=== PATIENT | male | born 1940 | race Caucasian/White ===

== ENCOUNTER 2017-03-10 11:04 | Outpatient (CLI) | payer MEDICARE, OTHER ==
[~2017-03-10] VITALS: Ht 177.8 cm; Wt 78.5 kg
[2017-03-10] VITALS (10 sets, daily range): BP systolic 127–172; BP diastolic 68–89
[~2017-03-10 11:04] MED LIST: ASCO500T3 PO; BISO1TAB10 PO; FENO160T PO; LISI10TA2 PO; OMEG100020 PO
[2017-03-10 11:46] LABS: HEMATOCRIT 48.7 % (39.0-53.0); HEMOGLOBIN 16.1 g/dL (13.0-17.5); RED BLOOD COUNT 5.5 x10^6/uL (4.30-5.70); RED CELL DISTRIBUTION WIDTH 14.5 % (11.5-14.5); WHITE BLOOD COUNT 9.7 x10^3/uL (4.0-11.0)
[2017-03-10 11:52] LABS: CALCIUM 9.1 mg/dL (8.5-10.1); CREATININE 0.9 mg/dL (0.7-1.3); GFR 82.5; POTASSIUM 3.7 mmol/L (3.5-5.1)
[2017-03-10] MEDS ORDERED: ASPI-482 PO (11:56)
[2017-03-10 11:58] LABS: PROTHROMBIN TIME PATIENT 12.1 SEC (11.7-14.0)
[2017-03-10] MEDS ORDERED: IOHEXOL 300 MG/ML 100ML VIAL. ONE (12:26)
[2017-03-10] MEDS ORDERED: LIDOCAINE 2% 20 ML VIAL. ONE (12:26)
[2017-03-10] MEDS ORDERED: MIDAZOLAM HCL/PF 2 MG/2 ML VIAL. ONE (12:50)
[2017-03-10] MEDS ORDERED: FENTANYL PF 100 MCG/2 ML VIAL. ONE (12:50)
--- NOTE | 2017-03-10 12:50 | PDOC ---
MODERATE SEDATION ASSESSMENT RISKS/ALTERNATIVES Risks/Alternatives Risks and alternatives of this type of sedation and procedure discussed with: RISK/ALTERNATIVES: Patient H & P ON CHART H & P H & P on chart and reviewed for co-morbid conditions and appropriate labs. H&P ON CHART: Yes STATUS PREG STATUS ASSESSED: Yes MEDS/ALLERGIES REVIEWED Meds/Allergies Reviewed Medications and Allergies including time and route of recently administered narcotics and sedatives. MEDS/ALLERGIES REVIEWED: Yes ASA RATING ASA RATING: I AIRWAY ASSESSMENT Airway Assessment Airway patency, oral function limitations, presence of caps, crowns, dentures, partials, and ability to extend neck assessed. AIRWAY ASSESSMENT: Yes MALLAMPATI SCORE MALLAMPATI SCORE: I PRE-SEDATION ASSESSMENT PRE-SEDATION ASSESSMENT: Yes DANIEL ROSARIO MD Mar 10, 2017 12:50
[2017-03-10] MEDS ORDERED: FENTANYL PF 100 MCG/2 ML VIAL. IV ONE (13:00)
[2017-03-10] MEDS ORDERED: MIDAZOLAM HCL/PF 2 MG/2 ML VIAL. IV ONE (13:00)
[2017-03-10] MEDS ORDERED: LIDOCAINE 2% 20 ML VIAL. IJ ONE (13:00)
[2017-03-10] MEDS ORDERED: IOHEXOL 300 MG/ML 100ML VIAL. IART ONE (13:00)
[2017-03-10] MEDS ORDERED: CONTRAST GIVEN MC PRN (13:15)
--- NOTE | 2017-03-10 15:19 | CARD ---
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 INDICATION The indication(s) include : stable angina , chest pain, Pt having exertional chest pains releived by rest., No chest pain at rest. CASE TECHNIQUE The patient was brought electively into the cardiac catheterization lab. A timeout was performed conf irming the patient's name, date of , procedure, and site of procedure. All necessary parties wer e wearing the appropriate personal protective equipment and radiation monitoring devices. After expla ining the risks and benefits of the procedure, informed consent was obtained.(See nursing notes for m edications administered). The right groin was sterilely prepped and draped. The right femoral groin w as infiltrated with 2% Lidocaine subcutaneous anesthesia. During this case, Fluoroscopy and low osmol ar contrast were used for imaging. A sheath was inserted into the right femoral artery without diffic ulty. Coronary angiography was performed using coronary diagnostic catheters. The left coronary syste m was accessed and visualized with a Diagnostic catheter. The right coronary system was accessed and visualized with a Diagnostic catheter. The left ventricle was accessed and visualized with a Diagnost ic catheter. Left ventricular/Aortic Valve gradient assessed on pullback. Left ventriculogram was per formed in REHMAN projection. Pre-demployment femoral angiogram was performed . Closure device was deploy ed with a Angioseal without any complications. The patient tolerated the procedure well and there wer e no complications associated with the procedure. Coronary Angiography The patient's coronary anatomy is co-dominant. The left main coronary artery is a large size vessel free of disease. The left main trifurcates to th e left anterior descending, circumflex, and ramus. The left anterior descending artery is a large size vessel with stenosis. There is a 95% stenosis in the proximal segment. The first diagonal branch is a medium size vessel . There is a 80% stenosis in the proximal segment. The second diagonal branch is a small size vessel with intimal irregularities a nd without significant stenosis. The third diagonal branch is a small size vessel with intimal irregu larities and without significant stenosis. The circumflex artery is a large size vessel with intimal irregularities and without significant sten osis. The first obtuse marginal branch is a large size vessel with stenosis. There is a 80% stenosis in the proximal segment. The second obtuse marginal branch is a medium size vessel with intimal irreg ularities and without significant stenosis. The third obtuse marginal branch is a medium size vessel with intimal irregularities and without significant stenosis. The ramus intermedius artery is a medium size vessel with diffuse calcification noted throughout this vessel and with significant stenosis. There is a 70% stenosis in the proximal segment. The right coronary artery is a large size vessel with stenosis. There is a 85% stenosis in the mid se gment. The right posterior descending artery is a medium size vessel free of disease. The right poste rolateral branch is a small size vessel without stenosis. Left Ventriculography The left ventricle is normal in size with normal contractility. The left ventricular ejection fractio n is estimated to be 70%. The left ventricular end diastolic pressure is 14 mmHg. There was no gradie nt across the aortic valve upon pullback. Conclusion This pt has significant multivessel disease I recommend CABGS. Recommendations CABG
--- NOTE | 2017-03-11 05:12 | CONS ---
DATE OF CONSULTATION: 03/10/2017 REFERRING PHYSICIAN: Dr. Alex Jacob. PRIMARY CARE PHYSICIAN: Dr. Cassie Vidal. REASON FOR CONSULTATION: Multivessel coronary artery disease. HISTORY OF PRESENT ILLNESS: The patient is a very pleasant 76-year-old gentleman who has a known history of coronary artery disease with prior myocardial infarction and stent placement to the LAD approximately 12 years ago. He has done well in the interim, but has begun having symptoms of exertional angina with minimal activity in the last month or two. Due to his symptomology, the patient was reevaluated by Dr. Jacob. Left heart catheterization was performed showing evidence of significant multivessel coronary artery disease with preserved LV systolic function. We have asked to see the patient now to consider coronary bypass grafting. PAST MEDICAL HISTORY: 1. Coronary artery disease. 2. Essential hypertension. 3. History of cataracts. PAST SURGICAL HISTORY: 1. Tonsillectomy. 2. Adenoidectomy. 3. Cataract removal. 4. Stent placement to the LAD in the past. ALLERGIES: There are no known drug allergies. CURRENT MEDICATIONS: Vitamin C 500 mg daily, lisinopril 10 mg daily, fenofibrate 160 mg daily, fish oil 1000 mg daily, aspirin 81 mg daily, bisoprolol/hydrochlorothiazide 2.5-6.25 mg once daily. SOCIAL HISTORY: The patient is a nonsmoker, does not use alcohol. 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 FAMILY HISTORY: The patient's father is , he did have a history of heart disease. Mother is , she had a history of dementia. REVIEW OF SYSTEMS: A 14-point review of systems was performed and as otherwise outlined above in the history of present illness is negative. PHYSICAL EXAMINATION: GENERAL: Reveals an awake, alert, elderly male in no active distress. His pulse is 74 and sinus rhythm. VITAL SIGNS: Blood pressure is 112/70. HEENT: Unremarkable. NECK: Shows no JVD. There are no bruits noted. CARDIOVASCULAR: Regular rhythm and rate without murmur. LUNGS: Clear and equal bilaterally. ABDOMEN: Soft, nontender. EXTREMITIES: Show no edema. Pedal pulses are normal. NEUROLOGIC: Showed no focal abnormalities. SKIN: Shows no lesions present. IMPRESSION: This is a 76-year-old male presents with exertional angina and has multivessel coronary artery disease with preserved LV function. RECOMMENDATIONS: I agree that coronary bypass grafting would be appropriate for the patient. I would anticipate graft being placed to the LAD, one graft to the obtuse marginal vessel. The first diagonal vessel may be graftable, but appears to be relatively small in size. The right coronary artery would benefit from a graft as well. Risks, benefits and alternatives of coronary bypass grafting were discussed with the patient and his family. He appears to understand and desires to proceed. OR plans are to be scheduled for 03/14/2017. He will be admitted at that time. Thank you very much for asking me to partake in the care of this very pleasant gentleman. DESIRAE THAKKAR MD DR: HAMIDA/jordan JOB#: [id number] / [id number] CASSIE Martin MD, HECTOR MD
== END 2017-03-10 16:40 | disposition home or self-care (01) ==
LOC: CCL 11:04
PROVIDERS: ATTEND Internal Medicine Cardiovascular Disease
DX: I20.8 Other forms of angina pectoris (principal); I10 Essential (primary) hypertension; E78.00 Pure hypercholesterolemia, unspecified; I25.10 Atherosclerotic heart disease of native coronary artery without angina pectoris; Z87.891 Personal history of nicotine dependence; Z98.41 Cataract extraction status, right eye; Z98.42 Cataract extraction status, left eye
CPT/HCPCS: 36415; 80048; 85027; 85610; 93458; C1769; C1771; C1892; J2250; J3010; Q9967; G0269

== ENCOUNTER → 2017-03-13 | Outpatient (CLI) | payer MEDICARE, OTHER ==
[2017-03-10 15:00] VITALS: BP 146/76
[~2017-03-13] MED LIST changes: +ASPI-482 PO
--- NOTE | 2017-03-13 11:35 | RAD ---
Indication coronary artery disease. Anticipated bypass. Preprocedure study. Grayscale color Doppler and spectral imaging was performed. Examination was targeted to the carotid bifurcations. On the right there is no significant plaquing or abnormal thickening. The color Doppler images do not suggest significant turbulence. The right common carotid has a normal waveform and velocity. The external carotid has a normal appearance. The internal carotid waveform and velocities are normal. The vertebral is patent and demonstrates normal antegrade flow. On the left there is no significant plaquing. The color Doppler images do not suggest significant turbulence. The common carotid waveform and velocities are normal. The external carotid has a normal appearance. The internal carotid waveform and velocities are also normal. The vertebral is patent and demonstrates normal directional flow. IMPRESSION: No evidence of hemodynamically significant stenosis at either carotid bifurcation. Stenosis 0-50%. Note: Stenosis calculations for CT, MR and conventional angiography are based upon determination of the distal ICA diameter in accordance with the NASCET methodology. Stenosis calculations for doppler studies are derived from validated velocity criteria which are known to correlate with NASCET methodology of determining stenosis.
--- NOTE | 2017-03-13 13:23 | RAD ---
Indication preop. Anticipated open heart surgery. PA and lateral views of the chest were obtained and are compared to an exam 10/18/2006. The heart and pulmonary vessels appear normal. The lungs are clear. There are occasional calcified granulomas similar to the previous exam. IMPRESSION: No acute finding in the chest. No significant change
== END | disposition home or self-care (01) ==
LOC: US 10:06
PROVIDERS: ATTEND Thoracic Surgery (Cardiothoracic Vascular Surgery)
DX: Z01.818 Encounter for other preprocedural examination (principal); I25.10 Atherosclerotic heart disease of native coronary artery without angina pectoris
CPT/HCPCS: 36415; 71020; 87641; 93880

== ENCOUNTER 2017-03-14 05:36 | Inpatient (IN) | payer MEDICARE, OTHER ==
--- NOTE | 2017-03-13 14:07 | EKG ---
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
[~2017-03-14] VITALS: Ht 180.3 cm; Wt 83.9 kg
[2017-03-14] VITALS (18 sets, daily range): BP systolic 82–158; BP diastolic 40–80
[2017-03-14] MEDS ORDERED: POTASSIUM CHLORIDE 15 MEQ, SODIUM BICARBONATE VIAL 12.5 MEQ in IV ELECTROLYTE-S (PH 7.4... IRR ONE (06:00)
[2017-03-14] MEDS ORDERED: POTASSIUM CHLORIDE 70 MEQ, SODIUM BICARBONATE VIAL 12.5 MEQ, LIDOCAINE 2% 24 ML in IV E... IRR ONE (06:00)
[2017-03-14] MEDS ORDERED: INSULIN REGULAR VIAL 150 UNIT in 0.9 % SODIUM CHLORIDE 150ML 150 ML IV PRN (06:00)
[2017-03-14] MEDS ORDERED: CEFAZOLIN PREMIX 2 GM/50 ML BAG. IV ONE (06:00)
[2017-03-14] MEDS ORDERED: HEPARIN 20,000 UNIT in IV RINGERS,LACTATED 1000ML 1,000 ML IRR ONE (06:00)
[2017-03-14] MEDS ORDERED: METOPROLOL TART IMMED RELEASE 25 MG TABLET. PO ONE (06:00)
[2017-03-14] MEDS ORDERED: ETOMIDATE 20 MG/10 ML VIAL. IV ONE (06:27)
[2017-03-14] MEDS ORDERED: HEPARIN for IV BOLUS 10,000 UNIT/10 ML VIAL. ONE ×3 (06:27→10:31)
[2017-03-14] MEDS ORDERED: AMINOCAPROIC ACID 5,000 MG/20 ML VIAL. IV ONE ×2 (06:27→12:46)
[2017-03-14] MEDS ORDERED: ROCURONIUM 100 MG/10 ML VIAL. ONE ×3 (06:31→09:40)
[2017-03-14] MEDS ORDERED: PHENYLEPHRINE 10 MG/ML VIAL. ONE (06:32)
[2017-03-14] MEDS ORDERED: MIDAZOLAM HCL/PF 5 MG/5 ML VIAL. ONE (06:48)
[2017-03-14] MEDS ORDERED: SUFentanil 100 MCG/2 ML AMPUL. ONE ×2 (06:48→09:08)
[2017-03-14] MEDS ORDERED: NITROGLYCERIN PREMIX 250 ML IV ONE ×2 (06:51→11:41)
[2017-03-14] MEDS ORDERED: LIDOCAINE 1% 1 ML SYRINGE. ID PRN (07:00)
[2017-03-14] MEDS ORDERED: ONDANSETRON PF 4 MG/2 ML VIAL. IV PRN ×2 (07:00→15:30)
[2017-03-14] MEDS ORDERED: IV RINGERS,LACTATED 1000ML 1,000 ML IV SCH (07:00)
[2017-03-14] MEDS ORDERED: PROCHLORPERAZINE 10 MG/2 ML VIAL. IV PRN (07:00)
[2017-03-14] MEDS ORDERED: HYDROMORPHONE 2 MG/ML VIAL. IV PRN (07:00)
[2017-03-14] MEDS ORDERED: MORPHINE SULFATE 2 MG/ML DISP.SYRIN. IV PRN (07:00)
[2017-03-14] MEDS ORDERED: FENTANYL PF 100 MCG/2 ML VIAL. IV PRN ×2 (07:00)
[2017-03-14] MEDS ORDERED: SURGICEL HEMOSTAT 4X8 EACH. ONE (07:09)
[2017-03-14] MEDS ORDERED: 0.9 % SODIUM CHLORIDE 50 ML VIAL. IJ ONE (07:09)
[2017-03-14] MEDS ORDERED: PAPAVERINE 60 MG/2 ML VIAL FOR OR ONLY. ONE (07:09)
[2017-03-14] MEDS ORDERED: ASPIRIN 300 MG SUPP.RECT ONE (07:09)
[2017-03-14] MEDS ORDERED: MANNITOL 20% PREMIX 500 ML IV ONE (07:30)
[2017-03-14] MEDS ORDERED: DEXAMETHASONE SOD PHOS 20 MG/5 ML VIAL. ONE (07:53)
[2017-03-14] MEDS: CEFAZOLIN 2GM PREMIX 50 ML IV PRN (08:33)
[2017-03-14] MEDS ORDERED: HEPARIN PRESERVATIVE FREE 800 UNIT, NITROGLYCERIN 4 MG, VERAPAMIL 8 MG, SODIUM BICARBON... IRR ONE ×5 (09:00)
[2017-03-14] MEDS ORDERED: VECURONIUM BOLUS 10 MG VIAL. IV ONE ×2 (09:43→10:03)
[2017-03-14] MEDS ORDERED: HEPARIN 30,000 UNIT/30 ML VIAL. ONE ×2 (10:15→12:46)
[2017-03-14] MEDS ORDERED: PROTAMINE 250 MG/25 ML VIAL IV ONE (11:38)
[2017-03-14] MEDS ORDERED: PROPOFOL 10 MG/ML (100ML) VIAL. IV ONE (12:00)
[2017-03-14] MEDS ORDERED: GLYCOPYRROLATE 1 MG/5 ML VIAL. ONE (12:09)
[2017-03-14] MEDS ORDERED: NEOSTIGMINE METHYLSULFATE 5 MG/5 ML SYRINGE. ONE (12:09)
[2017-03-14] MEDS ORDERED: MINERAL OIL 10 ML VIAL MC ONE (12:25)
[2017-03-14] MEDS ORDERED: PROTAMINE 50 MG/5 ML VIAL. IV ONE (12:30)
[2017-03-14] MEDS ORDERED: ALBUMIN HUMAN 25% 100 ML IV ONE (12:46)
[2017-03-14] MEDS ORDERED: LIDOCAINE 1% PF 5 ML VIAL. ONE (12:47)
[2017-03-14] MEDS ORDERED: MAGNESIUM SULFATE 5 GM/10 ML VIAL. ONE (12:47)
[2017-03-14] MEDS ORDERED: CALCIUM CHLORIDE 1,000 MG/10 ML DISP.SYRIN IV ONE (12:47)
[2017-03-14 12:48] LABS: BASO # 0.1 x10^3/uL (0.0-0.2); BASO % 0 % (0-3); EOS % 0 % (0-3); HEMATOCRIT 29.5 % (39.0-53.0); HEMOGLOBIN 9.5 g/dL (13.0-17.5); LYMPH # 1.5 x10^3/uL (1.0-4.8); LYMPH % 7 % (24-48); MEAN CORPUSCULAR HEMOGLOBIN 30 pg (25-35); MEAN CORPUSCULAR HGB CONC 32 g/dL (31-37); MEAN CORPUSCULAR VOLUME 92 fL (79-100); MONO % 1 % (0-9); NEUT % 91 % (31-73); PLATELET COUNT 126 x10^3/uL (140-400); RED BLOOD COUNT 3.22 x10^6/uL (4.30-5.70); RED CELL DISTRIBUTION WIDTH 14.7 % (11.5-14.5); WHITE BLOOD COUNT 20.1 x10^3/uL (4.0-11.0)
[2017-03-14 12:56] LABS: INR 1.8 (0.8-1.1)
[2017-03-14] MEDS ORDERED: CLEVIDIPINE BUTYRATE 100 ML IV ONE (13:00)
[2017-03-14 13:42] LABS: % BASOS 1 % (0-3); PLT ESTIMATE DECREASED (ADEQUATE)
--- NOTE | 2017-03-14 14:04 | PDOC ---
BRIEF OPERATIVE NOTE Date: Mar 14, 2017 Pre-Op Diagnosis CAD, Exertional Angina Post-Op Diagnosis Same Procedure Performed CABG X 3 with RED to LAD SVG to RCA Radial Artery Grat to OM Left Radial Artery [place] Surgeon Maite Euceda MD Lan Engineer TOBIAS Guardado Anesthesiologist Zack Anesthesia Type: General Blood Loss see perfusion record IV Fluid See anesthesia record Urine Output appropriate Specimens Obtained none Findings good quality conduit and target sites Complications none identified DESIRAE EUCEDA MD Mar 14, 2017 14:04
[2017-03-14 14:05] LABS: ART BE ISTAT -1 mmol/L (0-3); ART GLUC ISTAT 161 mg/dL (70-99); ART HCO3 ISTAT 24 mmol/L (21-28); ART HCT ISTAT 30 % (37-52); ART HGB ISTAT 10.2 g/dL (14-18); ART ION CA ISTAT 1.09 mmol/L (1.13-1.32); ART K ISTAT 4.8 mmol/L (3.5-5.0); ART NA ISTAT 135 mmol/L (135-145); ART PCO2 ISTAT 42 mmHg (35-45); ART PH ISTAT 7.37 (7.35-7.45); ART PO2 ISTAT 583 mmHg (75-100); ART SAT O2 SAT 100 % (95-99); ART TCO2 ISTAT 26 mmol/L (21-32); TOSPEC ART
[2017-03-14 14:05] LABS: ART BE ISTAT -3 mmol/L (0-3); ART GLUC ISTAT 137 mg/dL (70-99); ART HCO3 ISTAT 22 mmol/L (21-28); ART HCT ISTAT 40 % (37-52); ART HGB ISTAT 13.6 g/dL (14-18); ART ION CA ISTAT 1.19 mmol/L (1.13-1.32); ART K ISTAT 4.1 mmol/L (3.5-5.0); ART NA ISTAT 140 mmol/L (135-145); ART PCO2 ISTAT 38 mmHg (35-45); ART PH ISTAT 7.38 (7.35-7.45); ART PO2 ISTAT 146 mmHg (75-100); ART SAT O2 SAT 99 % (95-99); ART TCO2 ISTAT 24 mmol/L (21-32); TOSPEC ART
[2017-03-14 14:05] LABS: ART BE ISTAT -5 mmol/L (0-3); ART GLUC ISTAT 133 mg/dL (70-99); ART HCO3 ISTAT 20 mmol/L (21-28); ART HCT ISTAT 26 % (37-52); ART HGB ISTAT 8.8 g/dL (14-18); ART K ISTAT 4.6 mmol/L (3.5-5.0); ART NA ISTAT 136 mmol/L (135-145); ART PCO2 ISTAT 34 mmHg (35-45); ART PH ISTAT 7.38 (7.35-7.45); ART PO2 ISTAT 272 mmHg (75-100); ART SAT O2 SAT 100 % (95-99); ART TCO2 ISTAT 21 mmol/L (21-32); TOSPEC ART
[2017-03-14 14:05] LABS: ART BE ISTAT -2 mmol/L (0-3); ART GLUC ISTAT 157 mg/dL (70-99); ART HCO3 ISTAT 24 mmol/L (21-28); ART HCT ISTAT 28 % (37-52); ART HGB ISTAT 9.5 g/dL (14-18); ART ION CA ISTAT 1.05 mmol/L (1.13-1.32); ART K ISTAT 5.2 mmol/L (3.5-5.0); ART NA ISTAT 130 mmol/L (135-145); ART PCO2 ISTAT 46 mmHg (35-45); ART PH ISTAT 7.32 (7.35-7.45); ART PO2 ISTAT 494 mmHg (75-100); ART SAT O2 SAT 100 % (95-99); ART TCO2 ISTAT 25 mmol/L (21-32); TOSPEC ART
[2017-03-14 14:05] LABS: ART BE ISTAT 0 mmol/L (0-3); ART GLUC ISTAT 102 mg/dL (70-99); ART HCO3 ISTAT 25 mmol/L (21-28); ART HCT ISTAT 38 % (37-52); ART HGB ISTAT 12.9 g/dL (14-18); ART ION CA ISTAT 1.19 mmol/L (1.13-1.32); ART K ISTAT 3.6 mmol/L (3.5-5.0); ART NA ISTAT 141 mmol/L (135-145); ART PCO2 ISTAT 38 mmHg (35-45); ART PH ISTAT 7.43 (7.35-7.45); ART PO2 ISTAT 300 mmHg (75-100); ART SAT O2 SAT 100 % (95-99); ART TCO2 ISTAT 26 mmol/L (21-32); TOSPEC ART
[2017-03-14 14:05] LABS: FIO2 ISTAT 100; TOSPEC VEN; VEN BASE EXCESS ISTAT -5 mmol/L (0-3); VEN GLUC ISTAT 151 mg/dL (70-99); VEN HCO3 ISTAT 21 mmol/L (24-28); VEN HCT ISTAT 32 % (37-52); VEN HGB ISTAT 10.9 g/dL (14-18); VEN ION CA ISTAT 1.08 mmol/L (1.13-1.32); VEN K ISTAT 4.5 mmol/L (3.5-5.0); VEN NA ISTAT 137 mmol/L (135-145); VEN O2 ISTAT 58 mmHg (20-40); VEN PCO2 ISTAT 40 mmHg (41-51); VEN PH ISTAT 7.32 (7.32-7.42); VEN SO2 ISTAT 88 %; VEN TCO2 ISTAT 22 mmol/L (21-32)
[2017-03-14] MEDS ORDERED: MORPHINE SULFATE 10 MG/ML VIAL. ONE (14:22)
[2017-03-14] MEDS ORDERED: MEPERIDINE PF 25 MG/ML VIAL. IV PRN ×2 (14:45→15:30)
[2017-03-14 15:03] LABS: HCO3 ABG 20 mmol/L (21-28); PCO2 ABG 47 mmHg (35-46); PH ABG 7.24 (7.35-7.45); PO2 ABG 99 mmHg (65-108); SAT O2 ABG 96 % (92-99)
[2017-03-14] MEDS ORDERED: SODIUM BICARB ADULT 8.4% 50 MEQ/50 ML DISP.SYRIN. ONE (15:07)
[2017-03-14 15:14] LABS: BASO % 0 % (0-3); EOS % 0 % (0-3); HEMATOCRIT 29.6 % (39.0-53.0); HEMOGLOBIN 9.8 g/dL (13.0-17.5); LYMPH # 2.2 x10^3/uL (1.0-4.8); LYMPH % 9 % (24-48); MEAN CORPUSCULAR HEMOGLOBIN 30 pg (25-35); MEAN CORPUSCULAR HGB CONC 33 g/dL (31-37); MEAN CORPUSCULAR VOLUME 90 fL (79-100); MONO % 10 % (0-9); NEUT % 80 % (31-73); PLATELET COUNT 168 x10^3/uL (140-400); RED CELL DISTRIBUTION WIDTH 14.7 % (11.5-14.5); WHITE BLOOD COUNT 24.1 x10^3/uL (4.0-11.0)
[2017-03-14 15:30] LABS: CALCIUM 10.7 mg/dL (8.5-10.1); CREATININE 1.2 mg/dL (0.7-1.3); GFR 59.2; MAGNESIUM 2.7 mg/dL (1.8-2.4); POTASSIUM 4.6 mmol/L (3.5-5.1)
[2017-03-14] MEDS ORDERED: DEXTROSE 50% 25 GM / 50ML DISP.SYRIN. IV PRN (15:30)
[2017-03-14] MEDS ORDERED: AMIODARONE 900 MG in IV DEXTROSE 5% 500 ML IV PRN (15:30)
[2017-03-14] MEDS ORDERED: BISACODYL 10 MG SUPP.RECT. PR PRN (15:30)
[2017-03-14] MEDS ORDERED: ELECTROLYTE (ICU) PROTOCOL. MC PRN (15:30)
[2017-03-14] MEDS ORDERED: ASPIRIN 300 MG SUPP.RECT PR PRN (15:30)
[2017-03-14] MEDS ORDERED: AMIODARONE 150 MG in IV DEXTROSE 5% 100 ML IV PRN (15:30)
[2017-03-14] MEDS ORDERED: ACETAMINOPHEN 650 MG SUPP.RECT. PR PRN (15:30)
[2017-03-14] MEDS ORDERED: SODIUM BICARB ADULT 8.4% 50 MEQ/50 ML DISP.SYRIN. IV ONE (15:30)
[2017-03-14] MEDS ORDERED: PROPOFOL 100 ML IV PRN (15:30)
[2017-03-14] MEDS ORDERED: ALBUTEROL SULFATE 2.5 MG/3 ML NEBU. NEB PRN (15:30)
[2017-03-14] MEDS ORDERED: NITROGLYCERIN PREMIX 250 ML IV PRN (15:30)
[2017-03-14] MEDS ORDERED: ACETAMINOPHEN 325 MG TABLET. PO PRN (15:30)
[2017-03-14] MEDS ORDERED: KCL PER PROTOCOL MC PRN (15:30)
[2017-03-14] MEDS ORDERED: MAGNESIUM SULFATE 1GM 100 ML IV PRN (15:30)
--- NOTE | 2017-03-14 15:32 | EKG ---
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
[2017-03-14] MEDS: IV RINGERS,LACTATED 1000ML 1,000 ML IV SCH (16:22)
[2017-03-14 16:45] LABS: BASE EXCESS COOX -5 mmol/L (-3-3); CARBON MONOXIDE 0.3 % (0.0-1.9); HCO3 COOX 19 mmol/L (21-28); METHEMOGLOBIN 0.5 % (0.0-1.9); PCO2 COOX 30 mmHg (35-46); PH COOX 7.41 (7.35-7.45); PO2 COOX 368 mmHg (65-108); SAT O2 COOX 99 % (92-99); TOTAL HEMOGLOBIN 9.3 g/dL
[2017-03-14 16:47] LABS: FIO2 ABG 100
[2017-03-14 16:48] LABS: FIO2 COOX 100
--- NOTE | 2017-03-14 16:58 | RAD ---
Portable chest, 03/14/2017: History: Postop CABG Comparison is made to a study from 03/13/2017. There has been an interval median sternotomy. The ET tube tip lies 2.5 cm above the bruce. An NG tube extends into the fundus of the stomach. 2 mediastinal drains and a left chest tube are in place. A right jugular vascular sheath extends into the superior vena cava. There is a thin wire-like opacity projected over the inferior aspect of the heart on the right which may represent a portion of an epicardial lead. Clinical correlation is suggested. The heart size and pulmonary vascularity are within normal limits. A coronary artery stent overlies the left side of the heart. There appears to be mild streaky atelectasis in the lung bases. The lungs are otherwise clear. There is no evidence of pneumothorax or significant pleural fluid. IMPRESSION: 1. Numerous tubes and catheters have been inserted as described above. 2. Mild bibasilar atelectasis.
[2017-03-14] MEDS: MORPHINE SULFATE 2 MG/ML DISP.SYRIN. IV PRN ×2 (17:46→20:37)
[2017-03-14] MEDS: INSULIN REGULAR VIAL 150 UNIT in 0.9 % SODIUM CHLORIDE 150ML 150 ML IV PRN (17:50)
[2017-03-14 19:07] LABS: CALCIUM 8.1 mg/dL (8.5-10.1); CREATININE 0.9 mg/dL (0.7-1.3); GFR 82.5; POTASSIUM 3.2 mmol/L (3.5-5.1)
[2017-03-14 19:08] LABS: MAGNESIUM 1.8 mg/dL (1.8-2.4)
[2017-03-14] MEDS: POTASSIUM CHLORIDE 20MEQ 50 ML IV SCH ×3 (19:45→21:29)
[2017-03-14 20:03] LABS: HEMATOCRIT 25.3 % (39.0-53.0); HEMOGLOBIN 8.2 g/dL (13.0-17.5); RED BLOOD COUNT 2.8 x10^6/uL (4.30-5.70); RED CELL DISTRIBUTION WIDTH 14.5 % (11.5-14.5); WHITE BLOOD COUNT 13.4 x10^3/uL (4.0-11.0)
--- NOTE | 2017-03-14 20:06 | OP ---
DATE OF SURGERY: 03/14/2017 PREOPERATIVE DIAGNOSES: Coronary artery disease and exertional angina. FINAL DIAGNOSES: Coronary artery disease and exertional angina. OPERATIVE PROCEDURE PERFORMED TODAY: 1. Coronary artery bypass grafting x 3 with left internal mammary artery to the LAD, radial artery graft to OM, saphenous vein graft to right coronary artery. 2. Left radial artery harvest. SURGEON: Seb Euceda M.D. CHILD CARE CENTRE DIRECTOR: ABRAM Guardado. ANESTHESIA: General. INDICATIONS: The patient is a 76-year-old male with known history of coronary artery disease, prior [place], and prior stents placed in his LAD that was performed multiple years ago. The patient has done well in the interim, but has recently developed symptoms of exertional angina. He has not had evidence of unstable angina. He underwent reevaluation with stress test and subsequent left heart catheterization showing evidence of severe multivessel coronary artery disease with preserved LV systolic function. The patient is admitted at this time and brought to the operating room for coronary artery bypass grafting after informed consent has been obtained. OPERATIVE SUMMARY: The patient was brought into the operating room, placed in the OR table in supine position after anesthesia was induced with a general endotracheal route. Monitoring lines were positioned. The patient was prepped and draped in sterile fashion with chlorhexidine. It should be noted [place]-Juan Ramon catheter was unable to be floated. I first harvested radial artery from the left forearm using a Harmonic scalpel and concomitantly, saphenous vein was harvested from the left lower extremity using an endoscopic technique. A median sternotomy incision was then made. The left internal mammary artery was harvested in the standard fashion. I then opened the pericardium systemically, anticoagulated the patient with heparin. Cannulae were placed in the ascending aorta and the right atrium. An antegrade and retrograde cardioplegic cannulas were positioned after cardiopulmonary bypass was begun, under low flow conditions, ____ was crossclamped and the heart was arrested with cold antegrade and cold retrograde cardioplegia as well as topical ice slush. Diastolic arrest was achieved and maintained throughout this operation with intermittent doses of cold antegrade and retrograde cardioplegia as well as topical ice slush. We first opened up the right coronary artery just past the acute margin, is a large vessel greater than 2 mm in size. Distal anastomosis was carried out end-to-side fashion with 7-0 Prolene utilizing the reverse saphenous vein graft. We then brought this vein graft around to the ascending aorta and made a 4.8 punch aortotomy and constructed the proximal anastomosis with 6-0 Prolene. It should be noted that a vein size tapered proximally, but was felt still to be quite acceptable in size to use as a bypass conduit. Next, we examined the obtuse marginal system. We opened the vessel up, it is a large vessel, at least about 2 mm in size. The distal anastomosis was carried out ____ fascia with 7-0 Prolene utilizing the radial artery graft. We looked at the first diagonal vessel and found that it was just really a small vessel and not suitable for grafting. We therefore brought the radial artery around to the ascending aorta and made a 4.8 punch aortotomy and constructed a proximal anastomosis with 7-0 Prolene. Lastly, the ADALID was brought on the field. It was of good size and had excellent flow. The LAD was opened just past the last diagonal. I was able to pass a 1.5 mm probe both proximally and distally. Distal anastomosis was carried out in end-to-side fashion with 7-0 Prolene. The pedicle was tacked to the epicardium with 6-0 Prolene. We then gave warm cardioplegia both retrograde and antegrade. Care was taken to ____ the ascending aorta and the vein graft as well as a radial artery graft. Under low flow conditions, aortic crossclamp was released to begin the period of reperfusion. The patient was rewarmed to 37 degrees centigrade. We gave three successive doses of calcium and single dose of magnesium all over 3-5 minute intervals. The patient spontaneously returned to sinus bradycardia. We ultimately paced the patient atrially at a rate of ____ beats per minute. After a suitable period of reperfusion, the lungs were reinflated. The patient was weaned from cardiopulmonary bypass without inotropic support. Protamine was given to reverse the heparin. Decannulation was effected. Once satisfactory hemostasis was achieved, placed two 32-Turkish chest tubes anterior mediastinal and 24 Anders drain in left pleural space bringing them out through separate stab incisions. The sternum was closed with #7 wire. The fascia, subcutaneous, and skin were closed in multiple layers with absorbable suture. The procedure was completed. The patient was taken to the CV ICU in stable condition. Cardiopulmonary bypass time was 96 minutes. CROSS CLAMP TIME: 76 minutes. SEB EUCEDA MD DR: HAMIDA/jordan JOB#: [id number] / [id number] CASSIE Martin MD, HECTOR MD
[2017-03-14 20:18] LABS: FIO2 ABG 40; HCO3 ABG 22 mmol/L (21-28); PCO2 ABG 38 mmHg (35-46); PH ABG 7.38 (7.35-7.45); PO2 ABG 90 mmHg (65-108)
[2017-03-14 20:19] LABS: SAT O2 ABG 96 % (92-99)
[2017-03-14] MEDS: ALBUMIN HUMAN 5% 250 ML IV PRN ×3 (20:29→20:31)
[2017-03-14] MEDS: FAMOTIDINE 20 MG/2 ML VIAL IVP SCH (20:41)
[2017-03-14] MEDS: CEFAZOLIN SODIUM 1 GM in IV NORMAL SALINE 50ML 50 ML IV SCH (20:45)
[2017-03-14] MEDS: SENNOSIDES/DOCUSATE 8.6/50MG TABLET. PO SCH (20:57)
[2017-03-14] MEDS ORDERED: CHLORHEXIDINE 0.12% 15 ML MOUTHWASH. MM SCH (21:00)
[2017-03-14] MEDS ORDERED: ALBUTEROL SULFATE 2.5 MG/3 ML NEBU. NEB SCH (22:00)
[2017-03-14] MEDS: ALBUTEROL SULFATE 2.5 MG/3 ML NEBU. NEB SCH (22:00)
[2017-03-14] MEDS: OXYCODONE/APAP 5/325 TABLET. PO PRN (22:34)
[2017-03-15] VITALS (29 sets, daily range): BP systolic 67–154; BP diastolic 37–60
[2017-03-15] MEDS: ALBUMIN HUMAN 5% 250 ML IV PRN (01:00)
[2017-03-15] MEDS: OXYCODONE/APAP 5/325 TABLET. PO PRN ×4 (02:50→20:12)
--- NOTE | 2017-03-15 03:56 | EKG ---
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
[2017-03-15 05:54] LABS: HEMATOCRIT 23.7 % (39.0-53.0); HEMOGLOBIN 7.7 g/dL (13.0-17.5); RED BLOOD COUNT 2.62 x10^6/uL (4.30-5.70); RED CELL DISTRIBUTION WIDTH 14.2 % (11.5-14.5); WHITE BLOOD COUNT 13.1 x10^3/uL (4.0-11.0)
[2017-03-15] MEDS: ALBUTEROL SULFATE 2.5 MG/3 ML NEBU. NEB SCH ×4 (06:00→23:55)
[2017-03-15] MEDS: CEFAZOLIN SODIUM 1 GM in IV NORMAL SALINE 50ML 50 ML IV SCH ×3 (06:30→21:26)
[2017-03-15 06:36] LABS: CALCIUM 8.4 mg/dL (8.5-10.1); CREATININE 1.1 mg/dL (0.7-1.3); GFR 65.4; MAGNESIUM 2.1 mg/dL (1.8-2.4); POTASSIUM 4.2 mmol/L (3.5-5.1)
--- NOTE | 2017-03-15 07:01 | PDOC ---
Provider Note Provider Note POD #1 CABG X 3 Pt is awake, alert SR [address] wound sites ok [address] drainage about 600 labs noted, anemic, but would like to hold transfusing for now CXR looks good Plan: D/C art line and castillo resume B-Nalini, add amiodarone for a fib prevention will Leave MT's in today dure to drainage amount DESIRAE THAKKAR MD Mar 15, 2017 07:01
[2017-03-15] MEDS ORDERED: POTASSIUM CHLORIDE 20MEQ 50 ML IV ONE (07:30)
--- NOTE | 2017-03-15 07:47 | RAD ---
Portable chest, 03/15/2017: History: Postop CABG Comparison is made yesterday study. The ET tube and NG tube have been removed. 2 mediastinal drains, a left chest tube and a right jugular vascular sheath remain in place. The heart size and pulmonary vascularity are normal. There is minimal atelectasis medially in the left base. The lungs are otherwise clear. There is no evidence of pleural fluid or pneumothorax. IMPRESSION: Minimal left basilar atelectasis.
[2017-03-15] MEDS: ASPIRIN ENTERIC COATED 325 MG TABLET.DR. PO SCH (08:54)
[2017-03-15] MEDS: AMIODARONE HCL 200 MG TABLET. PO SCH ×2 (08:54→21:00)
[2017-03-15] MEDS: SENNOSIDES/DOCUSATE 8.6/50MG TABLET. PO SCH ×2 (08:54→21:25)
[2017-03-15] MEDS: FAMOTIDINE 20 MG/2 ML VIAL IVP SCH ×2 (08:55→21:26)
[2017-03-15] MEDS: METOPROLOL TART IMMED RELEASE 25 MG TABLET. PO SCH ×2 (09:00→21:00)
[2017-03-15] MEDS ORDERED: METOPROLOL TART IMMED RELEASE 25 MG TABLET. PO SCH (09:00)
[2017-03-15] MEDS: MORPHINE SULFATE 2 MG/ML DISP.SYRIN. IV PRN (10:39)
[2017-03-15] MEDS: IV RINGERS,LACTATED 1000ML 1,000 ML IV SCH ×2 (16:00→23:50)
[2017-03-15] MEDS: INSULIN REGULAR VIAL 150 UNIT in 0.9 % SODIUM CHLORIDE 150ML 150 ML IV PRN (23:54)
[2017-03-16] VITALS (16 sets, daily range): BP systolic 85–180; BP diastolic 50–81
[2017-03-16] MEDS ORDERED: ALBUMIN HUMAN 5% 500 ML IV ONE (01:30)
[2017-03-16] MEDS: OXYCODONE/APAP 5/325 TABLET. PO PRN ×3 (04:59→16:51)
[2017-03-16] MEDS: CEFAZOLIN SODIUM 1 GM in IV NORMAL SALINE 50ML 50 ML IV SCH (05:02)
[2017-03-16 05:17] LABS: HEMATOCRIT 28.1 % (39.0-53.0); HEMOGLOBIN 9.4 g/dL (13.0-17.5); RED BLOOD COUNT 3.08 x10^6/uL (4.30-5.70); RED CELL DISTRIBUTION WIDTH 14.4 % (11.5-14.5); WHITE BLOOD COUNT 15.7 x10^3/uL (4.0-11.0)
[2017-03-16 05:49] LABS: CALCIUM 8.8 mg/dL (8.5-10.1); CREATININE 1.1 mg/dL (0.7-1.3); GFR 65.4; MAGNESIUM 2.3 mg/dL (1.8-2.4); POTASSIUM 3.7 mmol/L (3.5-5.1)
[2017-03-16] MEDS: ALBUTEROL SULFATE 2.5 MG/3 ML NEBU. NEB SCH ×3 (06:00→20:53)
[2017-03-16] MEDS ORDERED: DEXTROSE 50% 25 GM / 50ML DISP.SYRIN. IV PRN (06:45)
[2017-03-16] MEDS ORDERED: AMIODARONE 150 MG in IV DEXTROSE 5% 100 ML IV ONE (06:45)
--- NOTE | 2017-03-16 06:47 | PDOC ---
Provider Note Provider Note POD # 2 Pt awake, alert SR w pac's present BP 123/70 VSS transfused last PM Wound sites ok wires and MT's removed labs noted k 3.7 hgb 9.4 CXR looks good Plan: will supress pac's with IV amiodarone replete potassium and mag ok to go to tele bed later today ambulate DESIRAE THAKKAR MD Mar 16, 2017 06:47
[2017-03-16] MEDS ORDERED: MAGNESIUM SULFATE 1GM 100 ML IV ONE (07:00)
[2017-03-16] MEDS ORDERED: AMIODARONE 900 MG in IV DEXTROSE 5% 500 ML IV PRN (07:00)
[2017-03-16] MEDS: POTASSIUM CHLORIDE 20MEQ 50 ML IV SCH ×2 (07:03→08:31)
[2017-03-16] MEDS: INSULIN ASPART 300 UNITS/3 ML INSULN.PEN SQ SCH ×3 (08:00→16:54)
--- NOTE | 2017-03-16 08:19 | RAD ---
Portable chest, 03/16/2017: History: Postop CABG Comparison is made to yesterday's study. The right jugular vascular sheath, 2 mediastinal drains and left chest tube remain in place. The heart size is normal. The pulmonary vascularity is within normal limits. There is only minimal residual atelectasis medially in the left base. The lungs are otherwise clear. There is no evidence of pleural fluid or pneumothorax. IMPRESSION: Stable postoperative chest
[2017-03-16] MEDS: FENOFIBRATE,MICRONIZED 134 MG CAPSULE PO SCH (08:35)
[2017-03-16] MEDS: SENNOSIDES/DOCUSATE 8.6/50MG TABLET. PO SCH ×2 (08:35→21:23)
[2017-03-16] MEDS: FAMOTIDINE 20 MG/2 ML VIAL IVP SCH ×2 (08:35→21:23)
[2017-03-16] MEDS: ASPIRIN ENTERIC COATED 325 MG TABLET.DR. PO SCH (08:35)
[2017-03-16] MEDS: AMIODARONE HCL 200 MG TABLET. PO SCH ×2 (08:36→21:00)
[2017-03-16] MEDS: METOPROLOL TART IMMED RELEASE 25 MG TABLET. PO SCH ×2 (08:36→21:23)
[2017-03-17 02:56] VITALS: BP 149/88
[2017-03-17] MEDS: ALBUTEROL SULFATE 2.5 MG/3 ML NEBU. NEB SCH ×3 (06:13→22:00)
--- NOTE | 2017-03-17 06:33 | PDOC ---
Provider Note Provider Note POD # 3 cabg Pt awake, alejimmy SR, no pac's noted VSS wound sites ok MELE drain removed no labs, cxr today Plan: d/c iv amiodarone ambulate, shower wean oxygen DESIRAE THAKKAR MD Mar 17, 2017 06:33
[2017-03-17 07:30] VITALS: BP 176/83
[2017-03-17] MEDS: INSULIN ASPART 300 UNITS/3 ML INSULN.PEN SQ SCH ×3 (08:00→16:38)
--- NOTE | 2017-03-17 08:07 | RAD ---
Indication postop. A single view of the chest was obtained. Comparison is made to an examination one day earlier. Postoperative changes are noted. IJ catheter seen previously has been removed. Pulmonary vasculature is normal. Heart size is unchanged. Significant areas of atelectasis are not seen. Acute finding is not apparent. There is no evidence of significant pleural fluid or pneumothorax. IMPRESSION: No acute or focal process seen in the chest
[2017-03-17] MEDS: FENOFIBRATE,MICRONIZED 134 MG CAPSULE PO SCH (08:19)
[2017-03-17] MEDS: SENNOSIDES/DOCUSATE 8.6/50MG TABLET. PO SCH ×2 (08:20→21:18)
[2017-03-17] MEDS: OXYCODONE/APAP 5/325 TABLET. PO PRN (08:20)
[2017-03-17] MEDS: AMIODARONE HCL 200 MG TABLET. PO SCH ×2 (08:21→21:18)
[2017-03-17] MEDS: ASPIRIN ENTERIC COATED 325 MG TABLET.DR. PO SCH (08:21)
[2017-03-17] MEDS: FAMOTIDINE 20 MG/2 ML VIAL IVP SCH ×2 (08:22→21:19)
[2017-03-17] MEDS: METOPROLOL TART IMMED RELEASE 25 MG TABLET. PO SCH ×2 (08:22→21:18)
[2017-03-17 11:48] VITALS: BP 146/81
[2017-03-17] MEDS ORDERED: FUROSEMIDE 20 MG/2 ML VIAL. IVP ONE (16:00)
[2017-03-17 16:17] VITALS: BP 150/75
[2017-03-17] MEDS: POTASSIUM CHLORIDE 20 MEQ TABLET.ER. PO SCH ×3 (16:38→23:51)
[2017-03-17 19:10] VITALS: BP 114/60
[2017-03-17 23:15] VITALS: BP 118/58
[2017-03-18 03:20] VITALS: BP 146/76
[2017-03-18 05:26] LABS: HEMATOCRIT 29.1 % (39.0-53.0); HEMOGLOBIN 9.6 g/dL (13.0-17.5); RED BLOOD COUNT 3.16 x10^6/uL (4.30-5.70); RED CELL DISTRIBUTION WIDTH 14.2 % (11.5-14.5); WHITE BLOOD COUNT 13.2 x10^3/uL (4.0-11.0)
[2017-03-18 05:31] LABS: CALCIUM 8.3 mg/dL (8.5-10.1); CREATININE 0.9 mg/dL (0.7-1.3); GFR 82.5; MAGNESIUM 2.3 mg/dL (1.8-2.4); POTASSIUM 3.9 mmol/L (3.5-5.1)
--- NOTE | 2017-03-18 07:04 | PDOC ---
Provider Note Provider Note Pt doing well SR VSS wound sites ok labs and cxr noted will wean oxygen off check 6 min walk ok to D/C home today f/u in three weeks DESIRAE THAKKAR MD Mar 18, 2017 07:04
[2017-03-18] MEDS ORDERED: POTASSIUM CHLORIDE 20 MEQ TABLET.ER. PO ONE (07:15)
[2017-03-18] MEDS: ALBUTEROL SULFATE 2.5 MG/3 ML NEBU. NEB SCH (07:35)
[2017-03-18] MEDS: INSULIN ASPART 300 UNITS/3 ML INSULN.PEN SQ SCH ×2 (08:00→12:00)
[2017-03-18] MEDS: FAMOTIDINE 20 MG/2 ML VIAL IVP SCH (09:00)
[2017-03-18] MEDS: ASPIRIN ENTERIC COATED 325 MG TABLET.DR. PO SCH (09:07)
[2017-03-18] MEDS: SENNOSIDES/DOCUSATE 8.6/50MG TABLET. PO SCH (09:07)
[2017-03-18] MEDS: AMIODARONE HCL 200 MG TABLET. PO SCH (09:07)
[2017-03-18] MEDS: FENOFIBRATE,MICRONIZED 134 MG CAPSULE PO SCH (09:07)
[2017-03-18 09:08] VITALS: BP 122/76
[2017-03-18] MEDS: METOPROLOL TART IMMED RELEASE 25 MG TABLET. PO SCH (09:08)
[2017-03-18 11:00] VITALS: BP 118/63
[2017-03-18] MEDS ORDERED: AMIO200T2 PO (12:48)
[2017-03-18] MEDS ORDERED: OXYC-323 PO (12:50)
--- NOTE | 2017-03-21 11:11 | HP ---
ADMIT DATE: 03/10/2017 REFERRING PHYSICIAN: Dr. Alex Jacob. PRIMARY CARE PHYSICIAN: Dr. Cassie Vidal. REASON FOR CONSULTATION: Multivessel coronary artery disease. HISTORY OF PRESENT ILLNESS: The patient is a very pleasant 76-year-old gentleman who has a known history of coronary artery disease with prior myocardial infarction and stent placement to the LAD approximately 12 years ago. He has done well in the interim, but has begun having symptoms of exertional angina with minimal activity in the last month or two. Due to his symptomology, the patient was reevaluated by Dr. Jacob. Left heart catheterization was performed showing evidence of significant multivessel coronary artery disease with preserved LV systolic function. We have asked to see the patient now to consider coronary bypass grafting. PAST MEDICAL HISTORY: 1. Coronary artery disease. 2. Essential hypertension. 3. History of cataracts. PAST SURGICAL HISTORY: 1. Tonsillectomy. 2. Adenoidectomy. 3. Cataract removal. 4. Stent placement to the LAD in the past. ALLERGIES: There are no known drug allergies. CURRENT MEDICATIONS: Vitamin C 500 mg daily, lisinopril 10 mg daily, fenofibrate 160 mg daily, fish oil 1000 mg daily, aspirin 81 mg daily, bisoprolol/hydrochlorothiazide 2.5-6.25 mg once daily. SOCIAL HISTORY: The patient is a nonsmoker, does not use alcohol. 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 FAMILY HISTORY: The patient's father is , he did have a history of heart disease. Mother is , she had a history of dementia. REVIEW OF SYSTEMS: A 14-point review of systems was performed and as otherwise outlined above in the history of present illness is negative. PHYSICAL EXAMINATION: GENERAL: Reveals an awake, alert, elderly male in no active distress. His pulse is 74 and sinus rhythm. VITAL SIGNS: Blood pressure is 112/70. HEENT: Unremarkable. NECK: Shows no JVD. There are no bruits noted. CARDIOVASCULAR: Regular rhythm and rate without murmur. LUNGS: Clear and equal bilaterally. ABDOMEN: Soft, nontender. EXTREMITIES: Show no edema. Pedal pulses are normal. NEUROLOGIC: Showed no focal abnormalities. SKIN: Shows no lesions present. IMPRESSION: This is a 76-year-old male presents with exertional angina and has multivessel coronary artery disease with preserved LV function. RECOMMENDATIONS: I agree that coronary bypass grafting would be appropriate for the patient. I would anticipate graft being placed to the LAD, one graft to the obtuse marginal vessel. The first diagonal vessel may be graftable, but appears to be relatively small in size. The right coronary artery would benefit from a graft as well. Risks, benefits and alternatives of coronary bypass grafting were discussed with the patient and his family. He appears to understand and desires to proceed. OR plans are to be scheduled for 03/14/2017. He will be admitted at that time. Thank you very much for asking me to partake in the care of this very pleasant gentleman. DESIRAE THAKKAR MD DR: HAMIDA/jordan JOB#: [id number] / [id number] CASSIE Martin MD, HECTOR MD
== END 2017-03-18 14:35 | disposition home or self-care (01) | DRG 236 ==
LOC: OPSVCIP 05:36 → 1 WEST ICU 14:50 → 2 SOUTH 03-16 18:04
PROVIDERS: ADMIT Thoracic Surgery (Cardiothoracic Vascular Surgery); ATTEND Thoracic Surgery (Cardiothoracic Vascular Surgery)
PROC: 02100AW Bypass Coronary Artery, One Artery from Aorta with Autologous Arterial Tissue, Open Approach (ICD-10-PCS; 2017-03-14)
PROC: 021009W Bypass Coronary Artery, One Artery from Aorta with Autologous Venous Tissue, Open Approach (ICD-10-PCS; 2017-03-14)
PROC: 06BQ4ZZ Excision of Left Saphenous Vein, Percutaneous Endoscopic Approach (ICD-10-PCS; 2017-03-14)
PROC: 03BC4ZZ Excision of Left Radial Artery, Percutaneous Endoscopic Approach (ICD-10-PCS; 2017-03-14)
PROC: 5A1221Z Performance of Cardiac Output, Continuous (ICD-10-PCS; 2017-03-14)
PROC: 30233K1 Transfusion of Nonautologous Frozen Plasma into Peripheral Vein, Percutaneous Approach (ICD-10-PCS; 2017-03-14)
PROC: 30233N1 Transfusion of Nonautologous Red Blood Cells into Peripheral Vein, Percutaneous Approach (ICD-10-PCS; 2017-03-14)
PROC: 02100Z9 Bypass Coronary Artery, One Artery from Left Internal Mammary, Open Approach (ICD-10-PCS; principal; 2017-03-14 07:30)
DX: I25.119 Atherosclerotic heart disease of native coronary artery with unspecified angina pectoris (principal); I25.2 Old myocardial infarction; J20.9 Acute bronchitis, unspecified
CPT/HCPCS: 36415; 36600; 71010; 71020; 80048; 82550; 82803; 82805; 82947; 83735; 84132; 85007; 85027; 85347; 85384; 85610; 85730; 86850; 86900; 86901; 86920; 86927; 87641; 93005; 93880; 94002; 94250; 94620; 94640; 94760; C1757; J0282; J0690; J1100; J1644; J1815; J2175; J2250; J2270; J2440; J2704; J2710; J3475; J3480; J3490; J7030; J7120; P9016; P9017; P9041; P9045; P9046; S0028; 97110; 97116; 97530; 97535; C9248

== ENCOUNTER 2017-08-07 05:55 | Day surgery (SDC) | payer MEDICARE, OTHER ==
[~2017-08-07] VITALS: Ht 180.3 cm; Wt 77.1 kg
[~2017-08-07 05:55] MED LIST changes: +AMIO200T2 PO; +ATOR10TA60 PO; +OXYC-323 PO
[2017-08-07] MEDS ORDERED: BACITRACIN 50,000 UNIT in IV NORMAL SALINE 500ML BAG 500 ML IRR ONE (06:00)
[2017-08-07] MEDS ORDERED: IV RINGERS,LACTATED 1000ML 1,000 ML IV SCH (07:00)
[2017-08-07] MEDS ORDERED: PROCHLORPERAZINE 10 MG/2 ML VIAL. IV PRN (07:00)
[2017-08-07] MEDS ORDERED: ONDANSETRON PF 4 MG/2 ML VIAL. IV PRN (07:00)
[2017-08-07] MEDS ORDERED: fentaNYL PF VIAL 100 MCG/2 ML VIAL IV PRN ×2 (07:00)
[2017-08-07] MEDS ORDERED: HYDROmorphone 2 MG/ML VIAL IV PRN (07:00)
[2017-08-07] MEDS ORDERED: LIDOCAINE 1% 1 ML SYRINGE. ID PRN (07:00)
[2017-08-07] MEDS ORDERED: MORPHINE SULFATE 2 MG/ML DISP.SYRIN. IV PRN (07:00)
[2017-08-07] MEDS ORDERED: fentaNYL PF VIAL 100 MCG/2 ML VIAL ONE (07:08)
[2017-08-07] MEDS ORDERED: ONDANSETRON PF 4 MG/2 ML VIAL. ONE (07:08)
[2017-08-07] MEDS ORDERED: PROPOFOL 20 ML IV ONE (07:08)
[2017-08-07] MEDS ORDERED: DEXAMETHASONE SOD PHOS 20 MG/5 ML VIAL. ONE (07:08)
[2017-08-07] MEDS ORDERED: LIDOCAINE 2% PF Vial for OR 5 ML VIAL. ONE (07:08)
[2017-08-07] MEDS ORDERED: SEVOFLURANE > 120 MINUTES. IH ONE (07:08)
[2017-08-07] MEDS ORDERED: BUPIVACAINE-EPI 0.5%-1:200000 50 ML VIAL. ONE (07:24)
[2017-08-07] MEDS ORDERED: ePHEDrine PF IN SALINE 50 MG/5 ML DISP.SYRIN IV ONE (07:48)
[2017-08-07] MEDS ORDERED: SEVOFLURANE 61 TO 120 MINUTES. IH ONE (08:09)
[2017-08-07] MEDS ORDERED: HYDR-971 PO (09:11)
--- NOTE | 2017-08-07 09:24 | DISCH ---
DISCHARGE INSTRUCTIONS Condition on Discharge Condition on Discharge: Stable Activity After Discharge Activity Instructions for Disc: Other, see below (no lifting over 20 lbs, strenuous activity X 4 weeks) Diet after Discharge Diet after Discharge: Regular Wound Incision Care Wound/Incision Care: Other, see below Follow-Up Follow up with: Dr Jean-Baptiste in 2 weeks in the office, call for appt [phone] MARCOS JEAN-BAPTISTE MD Aug 07, 2017 09:23
[2017-08-07] MEDS ORDERED: HYDROcodone/APAP 5/325MG 1 TAB TABLET PO ONE ×3 (09:30→09:45)
--- NOTE | 2017-08-07 09:43 | PDOC4 ---
Operative Note Operative Note Operative Note: Preoperative Diagnosis: Left inguinal hernia Postoperative Diagnosis: Same Procedure: Left inguinal hernia repair with mesh Surgeon: Filiberto Anesthesia: Gen. EBL: 10 mL Specimen: None Drains: None Complications: None Indication: The patient is a 76-year-old male who was referred due to a left inguinal hernia. He is interested in operative repair. The details and risks of surgery were discussed with the patient. The risks include bleeding, infection, recurrence, pain, anesthetic risk, potential need for additional surgery or procedure. He understands and would like to proceed. Description: The patient was taken to the operating room and placed supine on the operating table. Gen. anesthesia was performed. The left groin was shaved and prepped with ChloraPrep and draped in a standard surgical manner. An incision was made in the skin lines of the left groin with a scalpel. Cautery dissection was carried down to the external oblique aponeurosis. The aponeurosis was then opened down to the external ring. The contents of the inguinal canal were digitally mobilized and encircled with a [place] drain. The vas deferens and other cord structures were identified and preserved. There was a significant cord lipoma which was excised and discarded. The patient had a moderate size indirect hernia sac present. The sac was mobilized from the surrounding tissues. The sac was then fully reduced and the defect filled with an extra large Phasix plug. The inguinal floor was then reinforced with a keyhole mesh patch. A 3 x 6" Prolene mesh patch was used for reinforcement of the inguinal floor. The mesh was tailored and trimmed to provide coverage of the inguinal floor. The mesh was sutured using interrupted 2-0 Prolene and a slit was made to accommodate the cord structures. The external oblique was then closed over the mesh with a running 2-0 Vicryl. Subcutaneous tissue was approximated with 3-0 Vicryl. The skin was then closed with a 4-0 Monocryl running suture. The incision was infiltrated with half percent Marcaine with epinephrine. Steri-Strips and a sterile dressing were then applied. The patient tolerated the procedure well and was sent to the recovery room in stable condition. At the end of the case all counts were correct. MARCOS JEAN-BAPTISTE MD Aug 07, 2017 09:43
[2017-08-07 10:20] VITALS: BP 174/81
== END 2017-08-07 10:40 | disposition home or self-care (01) ==
LOC: SURG 05:55
PROVIDERS: ATTEND Surgery
DX: K40.90 Unilateral inguinal hernia, without obstruction or gangrene, not specified as recurrent (principal); I25.10 Atherosclerotic heart disease of native coronary artery without angina pectoris; E78.00 Pure hypercholesterolemia, unspecified; I10 Essential (primary) hypertension; Z98.42 Cataract extraction status, left eye; Z98.41 Cataract extraction status, right eye; Z87.891 Personal history of nicotine dependence
CPT/HCPCS: 49505; C1769; C1781; J0690; J1100; J2405; J2704; J3010; J2001

== ENCOUNTER → 2019-06-10 | Outpatient (CLI) | payer MEDICARE, OTHER ==
[~2019-06-10] MED LIST changes: -AMIO200T2 PO; +AMIO200T4 PO; +HYDR-3164 PO; -OXYC-323 PO; +OXYC1TAB15 PO
--- NOTE | 2019-06-10 10:07 | CARD ---
MR#: [id number] Date of Study: 06/10/2019 Ordering Physician: YULIANA SMALLWOOD, Referring Physician: YULIANA SMALLWOOD Tech: Denisse Morales RDCS APPROVED REPORT EXAM: Two-dimensional and M-mode echocardiogram with Doppler and color Doppler. Other Information Quality : AverageHR: 65bpm Rhythm : NSR INDICATION CAD Surgery/Intervention CABD DIMENSIONS RVDd2.9 (2.9-3.5cm)Left Atrium(2D)3.5 (1.6-4.0cm) IVSd1.0 (0.7-1.1cm)Aortic Root(2D)3.2 (2.0-3.7cm) LVDd3.9 (3.9-5.9cm)LVOT Diameter2.0 (1.8-2.4cm) PWd1.1 (0.7-1.1cm)LVDs2.2 (2.5-4.0cm) FS (%) 43.6 %SV51.2 ml LVEF(%)70.0 (>50%) M-Mode DIMENSIONS Left Atrium(MM)4.01 (2.5-4.0cm)Aortic Root3.65 (2.2-3.7cm) Aortic Valve AoV Peak Denis.123.0cm/sAoV VTI26.7cm AO Peak GR.6.1mmHgLVOT Peak Denis.92.6cm/s AO Mean GR.3mmHgAVA (VMAX)2.31cm2 CHANEL (VTI)2.18vv6XM P 1/2 Chla208nu Mitral Valve MV E Lijqjbkx88.1cm/sMV DECEL JTHT558ft MV A Vtztlzkw27.2cm/sE/A Ratio1.4 Pulmonary Valve PV Peak Uuxrjlgl389.2cm/s LEFT VENTRICLE The left ventricle is normal size. There is normal left ventricular wall thickness. The left ventricu lar systolic function is normal. The Ejection Fraction is 65-70%. Septal motion consistent with post- operative state. Transmitral Doppler flow pattern is Grade II-pseudonormal filling dynamics. RIGHT VENTRICLE The right ventricle is normal size. There is normal right ventricular wall thickness. The right ventr icular systolic function is normal. ATRIA The left atrium size is normal. The right atrium size is normal. The interatrial septum is intact wit h no evidence for an atrial septal defect or patent foramen ovale as noted on 2-D or Doppler imaging. AORTIC VALVE The aortic valve is normal in structure and function. The aortic valve is trileaflet. Doppler and Col or Flow revealed trace to mild aortic regurgitation. There is no significant aortic valvular stenosis . There is no aortic valvular vegetation. MITRAL VALVE The mitral valve is normal in structure and function. There is no evidence of mitral valve prolapse. There is no mitral valve stenosis. Doppler and Color Flow revealed no mitral valve regurgitation note d. TRICUSPID VALVE The tricuspid valve is normal in structure and function. Doppler and Color Flow revealed trace tricus pid regurgitation. There is no tricuspid valve prolapse or vegetation. There is no tricuspid valve st enosis. PULMONIC VALVE The pulmonary valve is normal in structure and function. Doppler and Color Flow revealed no pulmonic valvular regurgitation. There is no pulmonic valvular stenosis. GREAT VESSELS The aortic root is normal in size. The ascending aorta is normal in size. The IVC is normal in size a nd collapses >50% with inspiration. PERICARDIAL EFFUSION There is no evidence of significant pericardial effusion. Critical Notification Critical Value: No <Conclusion> The left ventricular systolic function is normal. The Ejection Fraction is 65-70%. Trace to mild aortic regurgitation. Trace tricuspid regurgitation. There is no evidence of significant pericardial effusion. Signed by : Yuliana Smallwood, Electronically Approved : 06/10/2019 10:07:01
== END | disposition home or self-care (01) ==
LOC: ECHO 08:37
PROVIDERS: ATTEND Internal Medicine Cardiovascular Disease
DX: I35.1 Nonrheumatic aortic (valve) insufficiency (principal); I25.10 Atherosclerotic heart disease of native coronary artery without angina pectoris
CPT/HCPCS: 93306

== ENCOUNTER → 2020-06-01 | Outpatient (CLI) | payer MEDICARE, OTHER ==
[~2020-06-01] MED LIST changes: -BISO1TAB10 PO; +BISO1TAB82 PO
--- NOTE | 2020-06-01 12:19 | CARD ---
MR#: [id number] Date of Study: 06/01/2020 Ordering Physician: YULIANA OCHOA, Referring Physician: YULIANA OCHOA Tech: Andria Yo DIONNA APPROVED REPORT EXAM: Two-dimensional and M-mode echocardiogram with Doppler and color Doppler. Other Information Quality : Good INDICATION Cardiac Disease: CAD 2D DIMENSIONS RVDd3.2 (2.9-3.5cm)Left Atrium(2D)3.6 (1.6-4.0cm) IVSd0.8 (0.7-1.1cm)Aortic Root(2D)3.0 (2.0-3.7cm) LVDd5.2 (3.9-5.9cm)LVOT Diameter2.2 (1.8-2.4cm) PWd0.8 (0.7-1.1cm)LVDs3.3 (2.5-4.0cm) FS (%) 37.3 %SV88.5 ml LVEF(%)60.0 (>50%) Aortic Valve AoV Peak Denis.125.0cm/sAoV VTI27.7cm AO Peak GR.6.3mmHgLVOT Peak Denis.90.3cm/s AO Mean GR.4mmHgAVA (VMAX)2.76cm2 CHANEL (VTI)3.57uk4XH P 1/2 Objr473ro Mitral Valve MV E Derxykcz46.7cm/sMV DECEL CFWL687oy MV A Dqeztwcs89.3cm/sE/A Ratio0.9 Tricuspid Valve TR P. Ardgtbrs102dy/sRAP WRYZREXA6wuPy TR Peak Gr.89yoOjGNIS92nrZu Pulmonary Vein S1 Xdzkwfsm25.0cm/sD2 Pqonyzwx00.0cm/s LEFT VENTRICLE The left ventricle is normal size. There is normal left ventricular wall thickness. The left ventricu lar systolic function is normal and the ejection fraction is within normal range. The Ejection Fracti on is 55-60%. There is normal LV segmental wall motion. Transmitral Doppler flow pattern is Grade I-a bnormal relaxation pattern. RIGHT VENTRICLE The right ventricle is normal size. The right ventricular systolic function is normal. ATRIA The left atrium size is normal. The right atrium size is normal. The interatrial septum is intact wit h no evidence for an atrial septal defect or patent foramen ovale as noted on 2-D or Doppler imaging. AORTIC VALVE The aortic valve is mildly thickened but opens well. Doppler and Color Flow revealed mild aortic regu rgitation. There is no significant aortic valvular stenosis. MITRAL VALVE The mitral valve is calcified but opens well. There is no evidence of mitral valve prolapse. There is no mitral valve stenosis. Doppler and Color-flow revealed trace mitral regurgitation. TRICUSPID VALVE The tricuspid valve is normal in structure and function. Doppler and Color Flow revealed trace tricus pid regurgitation. The PA pressure was estimated at 29 mmHg. There is no tricuspid valve stenosis. PULMONIC VALVE The pulmonic valve is not well visualized. Doppler and Color Flow revealed no pulmonic valvular regur gitation. There is no pulmonic valvular stenosis. GREAT VESSELS The aortic root is normal in size. The ascending aorta is mildly dilated at 3.9 cm The IVC is normal in size and collapses >50% with inspiration. PERICARDIAL EFFUSION There is no evidence of significant pericardial effusion. Critical Notification Critical Value: No <Conclusion> The left ventricular systolic function is normal and the ejection fraction is within normal range. Th e Ejection Fraction is 55-60%. There is normal LV segmental wall motion. Doppler and Color Flow revealed mild aortic regurgitation. The ascending aorta is mildly dilated at 3.9 cm Signed by : Misael Murphy, Electronically Approved : 06/01/2020 12:19:22
== END ==
LOC: ECHO 10:41
PROVIDERS: ATTEND Internal Medicine Cardiovascular Disease
DX: I08.0 Rheumatic disorders of both mitral and aortic valves (principal); I25.10 Atherosclerotic heart disease of native coronary artery without angina pectoris
CPT/HCPCS: 93306

== ENCOUNTER → 2021-06-10 | Outpatient (CLI) | payer MEDICARE, OTHER ==
[~2021-06-10] MED LIST changes: -AMIO200T4 PO; +AMIO200T6 PO; +LISI10TA16 PO; -LISI10TA2 PO
--- NOTE | 2021-06-10 17:06 | CARD ---
MR#: [id number] Date of Study: 06/10/2021 Ordering Physician: YULIANA SMALLWOOD, Referring Physician: YULIANA SMALLWOOD, Kwabena: Alex Carey APPROVED REPORT EXAM: Two-dimensional and M-mode echocardiogram with Doppler and color Doppler. Other Information Quality : AverageHR: 51bpm Rhythm : NSR INDICATION Cardiac Disease: CAD Surgery/Intervention CABG: RISK FACTORS Hyperlipidemia 2D DIMENSIONS Left Atrium(2D)4.6 (1.6-4.0cm)IVSd0.9 (0.7-1.1cm) Aortic Root(2D)3.4 (2.0-3.7cm)LVDd5.4 (3.9-5.9cm) LVOT Diameter2.0 (1.8-2.4cm)PWd0.9 (0.7-1.1cm) LVDs3.2 (2.5-4.0cm)FS (%) 41.5 % SV102.4 mlLVEF(%)71.9 (>50%) Aortic Valve LVOT VTI 25.21cmAI P 1/2 [id number] Mitral Valve MV E Aiyzkpcr59.3cm/sMV E Peak Gr.3mmHg MV DECEL [id number] A Mjclebsh40.3cm/s MV E Mean Gr.1mmHgE/A Ratio1.1 TDI Lateral E' P. V11.26cm/sMedial E' P. V7.98cm/s E/Lateral E'7.4E/Medial E'10.4 Tricuspid Valve TR P. Lgbwympw468rf/sTR Peak Gr.27mmHg Pulmonary Vein S1 Jkszkrui30.6cm/sS2 Dttjrehw82.91cm/s D2 Qlzvogdz46.9cm/s LEFT VENTRICLE The left ventricle is normal size. There is normal left ventricular wall thickness. The left ventricu lar systolic function is normal. The ejection fraction is 55-60%. There is normal LV segmental wall m otion. The left ventricular diastolic function and filling is normal for age. No left ventricle throm bus noted on this study. There is no ventricular septal defect visualized. There is no left ventricul ar aneurysm. There is no mass noted in the left ventricle. RIGHT VENTRICLE The right ventricle is normal size. There is normal right ventricular wall thickness. The right ventr icular systolic function is normal. ATRIA The left atrium size is normal. The right atrium size is normal. The interatrial septum is intact wit h no evidence for an atrial septal defect or patent foramen ovale as noted on 2-D or Doppler imaging. AORTIC VALVE The aortic valve is normal in structure and function. Doppler and Color Flow revealed mild aortic reg urgitation. There is no significant aortic valvular stenosis. There is no aortic valvular vegetation. MITRAL VALVE The mitral valve is normal in structure and function. There is no evidence of mitral valve prolapse. There is no mitral valve stenosis. Doppler and Color Flow revealed no mitral valve regurgitation note d. TRICUSPID VALVE The tricuspid valve is normal in structure and function. Doppler and Color Flow revealed trace tricus pid valve regurgitation. There is no tricuspid valve prolapse or vegetation. There is no tricuspid va lve stenosis. PULMONIC VALVE The pulmonary valve is normal in structure and function. Doppler and Color Flow revealed no pulmonic valvular regurgitation. There is no pulmonic valvular stenosis. GREAT VESSELS The aortic root is normal in size. The ascending aorta is normal in size. The pulmonary artery is nor mal. The IVC is normal in size and collapses >50% with inspiration. PERICARDIAL EFFUSION There is no pleural effusion. There is no evidence of significant pericardial effusion. Critical Notification Critical Value: No <Conclusion> The left ventricular systolic function is normal. The ejection fraction is 55-60%. There is normal LV segmental wall motion. Mild aortic regurgitation. Trace tricuspid valve regurgitation. There is no evidence of significant pericardial effusion. Signed by : Yuliana Smallwood, Electronically Approved : 06/10/2021 17:05:11
== END ==
LOC: ECHO 09:30
PROVIDERS: ATTEND Internal Medicine Cardiovascular Disease
DX: I35.1 Nonrheumatic aortic (valve) insufficiency (principal); I25.10 Atherosclerotic heart disease of native coronary artery without angina pectoris
CPT/HCPCS: 93306

== ENCOUNTER → 2021-07-05 | Outpatient (CLI) | payer MEDICARE, OTHER ==
[~2021-07-05] MED LIST changes: +IOHEXOL 300 MG/ML 100ML VIAL. IV ONE
--- NOTE | 2021-07-05 15:54 | KCIC ---
INDICATION: Reason: Gross hematuria. / Spl. Instructions: 95mL Omni 300 / History: Intermittent gross hematuria 6 months. Hx. stones, appendectomy.. COMPARISON: None. TECHNIQUE: Axial CT images obtained through the abdomen and pelvis with contrast including urogram images. Addit ionally images were obtained without contrast. Three-dimensional images were processed One or more of the following individualized dose reduction techniques were utilized for this examinat ion: 1. Automated exposure control; 2. Adjustment of the mA and/or kV according to patient size; 3 . Use of iterative reconstruction technique. FINDINGS: Mild atelectasis at the lung bases. Coronary artery calcific atherosclerosis. Enlarged prostate. Liver is low density which can be seen with fatty infiltration. No peripancreatic fluid collection. Atherosclerotic disease throughout the abdominal aorta. Fat-containing umbilical and inguinal hernias. Suspected cyst in the left lobe the liver measuring 12 mm. Splenic calcified granulomas. Lobulated appearance of the bilateral kidneys. There are multiple bilateral low-density renal lesions including at least 3 on the right measuring up to 17 mm which are likely cystic in nature. There are at least 2 on the left measuring up to 17 mm w hich are likely cystic in nature. Mass effect on the bladder base from the enlarged prostate. Along the right lateral wall the urinary bladder there is a masslike structure along the wall measuring 31 x 20 mm. Degenerative changes the spine with multilevel central canal and neural foraminal stenosis. Colonic diverticulosis. No dilated loops of bowel to suggest obstruction. Degenerative changes of the bilateral hips. Pars defects at L5. IMPRESSION: * Masslike structure is seen along the right lateral bladder wall. Primary bladder neoplasm such as transitional cell carcinoma can have this appearance. Further workup option includes direct visualiza tion with cystoscopy if not already obtained. Report called to the ordering provider's office at 3:50 PM on date of exam. * Enlarged prostate with mass effect on the bladder base. This also extends into the lumen of the ur inary bladder. * Multiple low-density bilateral renal lesions. Given the low density the most likely cause is cysti c lesions. * Low-density lesion within the liver which is most likely cystic in nature. Electronically signed by: Michel Vidal MD (07/05/2021 3:51 PM) [id number]
== END ==
LOC: KCIC CT 12:56
PROVIDERS: ATTEND Registered Nurse
DX: K57.30 Diverticulosis of large intestine without perforation or abscess without bleeding (principal); N40.0 Benign prostatic hyperplasia without lower urinary tract symptoms; R31.0 Gross hematuria; K40.90 Unilateral inguinal hernia, without obstruction or gangrene, not specified as recurrent; K42.9 Umbilical hernia without obstruction or gangrene; D73.89 Other diseases of spleen; I25.10 Atherosclerotic heart disease of native coronary artery without angina pectoris; J98.11 Atelectasis; I70.0 Atherosclerosis of aorta
CPT/HCPCS: 74178; 82565; Q9967